=== PATIENT | male | born 1985 | race Caucasian/White ===

== ENCOUNTER 2016-10-27 22:33 | Emergency (ER) | payer OTHER ==
--- NOTE | ~2016-10-27 | CR98 ---
[facility] A Service of [facility] & [facility] RADIOLOGY TEXT RESULTS PATIENT: MONIE HARDIN LOCATION: [facility] : 83 UNIT #: [id number] AGE: [address]: Nicolas Joe MD SEX: M ORDER DR: [id number] [facility] [address] [place], [place] [address] [id number] E MR#: [id number] Acc #: [id number] NAME: MONIE HARDIN. : 1985 SEX: M STUDY DATE/TIME: 10/27/2016 23:09 UNIT: [facility] ROOM: STUDY DESCRIPTION: CR Eye FB Juanito Attending Physician: Nicolas Joe M.D. Ordering Physician: Nicolas Joe M.D. Primary Care Physician: No Primary Care Physician MEDICAL IMAGING REPORT This report is preliminary unless electronic signature is present EXAM AP and lateral views of the orbits. HISTORY Preoperative evaluation for MRI. Possible metal in left eye; history removed 3 years ago. FINDINGS AP and lateral views of the orbits demonstrate no evidence of retained metallic foreign body within the orbits or facial region. Visualized craniofacial structures unremarkable. IMPRESSION Negative orbits for metallic foreign body. Dictated by... Adalid Beach M.D. THIS IS AN ELECTRONICALLY VERIFIED REPORT Adalid Beach M.D. at 10/28/2016 10:06 PM Angel Luis TD: 10/28/2016 11:10 JOB #: [id number] MEDICAL IMAGING REPORT Page 1 of 1 COPY
--- NOTE | ~2016-10-27 | MR175 ---
[facility] A Service of [facility] & [facility] RADIOLOGY TEXT RESULTS PATIENT: MONIE HARDIN LOCATION: [facility] : 84 UNIT #: [id number] AGE: [address]: Nicolas Joe MD SEX: M ORDER DR: [id number] [facility] [address] [place], [place] [address] [id number] E MR#: [id number] Acc #: [id number] NAME: MONIE HARDIN. : 1985 SEX: M STUDY DATE/TIME: 10/28/2016 0:41 UNIT: [facility] ROOM: STUDY DESCRIPTION: MR Thoracic WWo Contrast Attending Physician: Nicolas Joe M.D. Ordering Physician: Nicolas Joe M.D. Primary Care Physician: No Primary Care Physician MRI CENTER REPORT This report is preliminary unless electronic signature is present. EXAM MRI of the thoracic spine with and without contrast. HISTORY 31-year-old male complains of weakness, right arm pain, lower back pain x1 year. History of MRSA, tobacco abuse. FINDINGS Multiplanar multiecho imaging was performed of the thoracic spine to include sagittal and axial T1-weighted images following IV gadolinium. Examination demonstrates normal spinal alignment. Thoracic vertebral marrow signal unremarkable except for a 1 cm T2 hyperintense lesion within the posterior aspect of the T8 vertebral body. No surrounding marrow edema. This enhances postcontrast. This is nonspecific. Could represent an atypical hemangioma. More aggressive bone lesion such as metastatic disease unlikely. Thoracic cord signal appears normal without mass, syrinx or contusion. Disc spaces demonstrate mild degenerative disc changes mid thoracic spine. Questionable mild posterior disc bulging T4-5, T7-T8 and T8-T9; but no discernible stenosis identified on axial images. No definite cord impingement. Paravertebral soft tissues unremarkable. No findings to suggest diskitis. IMPRESSION 1. 1 cm T2 hyperintense lesion within the posterior aspect of the T8 vertebral body, which enhances postcontrast. Nonspecific, most likely represents an atypical hemangioma. No aggressive features are identified. Metastatic disease considered unlikely without supporting history. 2. Mild mid thoracic degenerative changes with mild disc bulging at multiple levels as detailed above, but no definite cord impingement or significant canal stenosis. 3. No evidence of diskitis or vertebral osteomyelitis. [facility]. [facility] A Service of [facility] RADIOLOGY TEXT RESULTS PATIENT: MONIE HARDIN LOCATION: [facility] : 84 UNIT #: [id number] AGE: [address]: Nicolas Joe MD SEX: M ORDER DR: Dictated by... Adalid Beach M.D. THIS IS AN ELECTRONICALLY VERIFIED REPORT Adalid Beach M.D. at 10/28/2016 10:05 PM Dov TD: 10/28/2016 11:23 JOB #: [id number] MRI CENTER REPORT Page 1 of 1 COPY
--- NOTE | ~2016-10-27 | MR31 ---
[facility] A Service of [facility] & [facility] RADIOLOGY TEXT RESULTS PATIENT: MONIE HARDIN LOCATION: [facility] : 84 UNIT #: [id number] AGE: [address]: Nicolas Joe MD SEX: M ORDER DR: [id number] [facility] [address] [place], [place] [address] [id number] E MR#: [id number] Acc #: [id number] NAME: MONIE HARDIN. : 1985 SEX: M STUDY DATE/TIME: 10/28/2016 0:09 UNIT: [facility] ROOM: STUDY DESCRIPTION: MR Cervical WWo Contrast Attending Physician: Nicolas Joe M.D. Ordering Physician: Nicolas Joe M.D. Primary Care Physician: No Primary Care Physician MRI CENTER REPORT This report is preliminary unless electronic signature is present. EXAM MR cervical spine with and without contrast. HISTORY 31-year-old male complains of weakness and right arm pain x1 year. FINDINGS Multiplanar multiecho imaging was performed of the cervical spine utilizing a high-field magnet dedicated protocol. Sagittal and axial T1-weighted images were performed following IV gadolinium. Normal spinal alignment. Cervical vertebral marrow signal appears normal. Cord signal appears normal without mass, syrinx or contusion. No evidence of Chiari malformation. The atlantoaxial joint unremarkable. At C2-3, the disc space is maintained. No spinal or foraminal stenosis. At C3-4, there is mild posterior disc bulging with effacement of thecal sac, but no cord impingement. At C4-5, mild posterior disc protrusion with a small central disc protrusion contributing to mild central canal stenosis and mild impingement anterior cord. At C5-6, there is disc desiccation and a small central right paracentral disc protrusion. This effaces the thecal sac and impinges the anterior cervical cord. Contributing to mild spinal stenosis. At C6-7, there is mild broad-based posterior disc protrusion with minimal effacement of thecal sac, but no impinge of the cord. No foraminal stenosis. At C7-T1, the disc space is maintained. No spinal or foraminal stenosis. [facility]. [facility] A Service of [facility] & [facility] RADIOLOGY TEXT RESULTS PATIENT: [facility] HARDIN [id number] 83 UNIT #: [id number] AGE: [address]: Nicolas Joe MD SEX: M ORDER DR: No abnormal enhancement was identified postcontrast. The paravertebral soft tissues are unremarkable. IMPRESSION Mild multilevel degenerative disc changes as detailed above. Findings most prominent at C5-6 with a small right paracentral disc protrusion with contact of the anterior cervical cord with mild canal stenosis. Dictated by... Adalid Beach M.D. THIS IS AN ELECTRONICALLY VERIFIED REPORT Adalid Beach M.D. at 10/28/2016 10:04 PM Dov TD: 10/28/2016 11:41 JOB #: [id number] MRI CENTER REPORT Page 1 of 1 COPY
--- NOTE | ~2016-10-27 | MR112 ---
[facility] A Service of [facility] & [facility] RADIOLOGY TEXT RESULTS PATIENT: MONIE HARDIN LOCATION: [facility] : 83 UNIT #: [id number] AGE: [address]: Nicolas Joe MD SEX: M ORDER DR: [id number] [facility] [address] [place], [place] [address] [id number] E MR#: [id number] Acc #: [id number] NAME: MONIE HARDIN. : 1985 SEX: M STUDY DATE/TIME: 10/27/2016 23:43 UNIT: [facility] ROOM: STUDY DESCRIPTION: MR Lumbar WWo Contrast Attending Physician: Nicolas Joe M.D. Ordering Physician: Nicolas Joe M.D. Primary Care Physician: Primary Care Physician No MRI CENTER REPORT This report is preliminary unless electronic signature is present. EXAM MRI lumbar spine with without contrast. HISTORY Complains of weakness, right arm pain, lower back pain x1 year. FINDINGS Multiplanar, multiecho images was performed of the lumbar spine to include sagittal and axial T1-weighted images following IV gadolinium. Normal spinal alignment. Lumbar vertebral marrow signal unremarkable except for a small amount of superior endplate marrow edema L4 vertebral body probably related to a interosseous disc herniation and Schmorl node. No evidence of diskitis or vertebral osteomyelitis. Normal termination of the conus. The L1-2 and L2-3 disc levels are unremarkable. At L3-4 there is disc desiccation but no significant spinal or foraminal stenosis. At L4-5 the disc space is maintained. No spinal or foraminal stenosis. At L5-S1 there is a moderate sized central, left paracentral disc protrusion which contributes to left lateral recess and foraminal stenosis and it may impinge the exiting left L5 nerve root. Facet joints unremarkable. Paravertebral soft tissues and visualized SI joints unremarkable. No abnormal enhancement postcontrast. IMPRESSION L5-S1 degenerative disc disease with a small central left paracentral disc protrusion and herniation with probable impingement of the exiting left L5 nerve root and mild lateral recess stenosis. [facility] A Service of [facility] & [facility] RADIOLOGY TEXT RESULTS PATIENT: MONIE HARDIN LOCATION: [facility] : 83 UNIT #: [id number] AGE: [address]: Nicolas Joe MD SEX: M ORDER DR: Dictated by... Adalid Beach M.D. THIS IS AN ELECTRONICALLY VERIFIED REPORT Adalid Beach M.D. at 10/28/2016 10:05 PM Luis Antonio TD: 10/28/2016 11:28 JOB #: [id number] MRI CENTER REPORT Page 1 of 1 COPY
[2016-10-27 23:07] LABS: URINE SOURCE CLEAN CATCH
[2016-10-27 23:13] LABS: BASOPHIL% 0.6 % (0-2.5); EOSINOPHIL# 0.3 X10e3 (0-0.7); EOSINOPHIL% 4.1 % (0.0-7.0); HEMATOCRIT 44.2 % (38.0-50.0); HEMOGLOBIN 14.6 gm/dL (13.0-16.0); LYMPHOCYTE# 2.4 X10e3 (1.0-3.5); LYMPHOCYTE% 32.3 % (17.0-45.0); MEAN CORPUSCULAR HGB CONC 32.9 g/dL (30-36); MEAN PLATELET VOLUME 8.3 FL (6.5-11.5); MONOCYTE# 0.8 X10e3 (0-1.0); MONOCYTE% 10.7 % (3.0-12.0); NEUTROPHIL# 3.9 X10e3 (1.5-7.1); NEUTROPHIL% 52.3 % (40-75); PLATELET COUNT 199 X10e3 (140-420); RED CELL DISTRIBUTION WIDTH 14.5 % (11.0-15.5); WHITE BLOOD COUNT 7.5 X10e3 (4.0-10.5)
[2016-10-27 23:14] LABS: URINE APPEARANCE CLEAR; URINE BILIRUBIN NEG (NEG); URINE BLOOD NEG (NEG); URINE COLOR YELLOW; URINE GLUCOSE NEG (NEG); URINE KETONE NEG (NEG); URINE LEUKOCYTE ESTERASE NEG (NEG); URINE NITRATE NEG (NEG); URINE PROTEIN NEG (NEG); URINE SPECIFIC GRAVITY 1.011 (1.003-1.035)
[2016-10-27 23:15] LABS: DIFF IND NO
[2016-10-27 23:23] LABS: AMPHETAMINE NEG (NEG); BARBITURATES NEG (NEG); BENZODIAZEPINES NEG (NEG); COCAINE NEG (NEG); MARIJUANA NEG (NEG); OPIATES NEG (NEG); TRICYCLIC ANTIDEPRESSANTS NEG (NEG); U METHADONE NEG (NEG)
[2016-10-27 23:25] LABS: PARTIAL THROMBOPLASTIN TIME 26.9 SECONDS (23.5-31.3); PROTHROMBIN TIME (PATIENT) 10.4 SECONDS (9.6-11.5)
[2016-10-27 23:31] LABS: CULTURE INDICATED? NO
[2016-10-27 23:33] LABS: ALBUMIN SERUM 4.2 g/dL (3.5-5.0); BILIRUBIN, DIRECT 0.1 mg/dL (0.0-0.2); BILIRUBIN,INDIRECT 0.4 mg/dL (0.0-0.9); BILIRUBIN,TOTAL 0.5 mg/dL (0.2-2.0); BUN/CREATININE RATIO 22.5; CALCIUM SERUM 9.1 mg/dL (8.4-10.2); CREATININE SERUM 0.8 mg/dL (0.6-1.4); GLOM FILT RATE Estimated 118.2 mL/min (>60); POTASSIUM 3.7 mmol/L (3.5-5.1)
== END 2016-10-28 02:42 | disposition home or self-care (01) ==
LOC: CED 22:33
PROVIDERS: Emergency Medicine
DX: M54.2 Cervicalgia (principal); M54.6 Pain in thoracic spine; G89.29 Other chronic pain; F17.210 Nicotine dependence, cigarettes, uncomplicated; Z88.8 Allergy status to other drugs, medicaments and biological substances
CPT/HCPCS: 36415; 70030; 72156; 72157; 72158; 80048; 80076; 80307; 81003; 85025; 85610; 85730; 87040; 96374; 96375; 99284; A9577; J2270; J3360